=== PATIENT | female | born 1965 | race Caucasian/White ===

== ENCOUNTER → 2016-03-07 | Outpatient (CLI) | payer OTHER ==
[~2016-03-07] MED LIST: ASACOL HD800 M1 PO; BUSPAR 5MG TAB5 MG PO; DICLOFENAC SODI75 M2 PO; ENTOCORT EC3 M1 PO; GABAPENTIN100 MG PO; LIDOCAINE1 EACH TD; MEDROL 4MG. DOSE4 MG PO; METHOCARBAMOL750 M1 PO; MORPHINE SULFAT15 M3 PO; MUCINEX1200 MG PO; POTASSIUM CHLO20 ME2 PO; PROCTOCORT30 MG RC; PROMETHAZINE D118 ML PO; PROPYLTHIOURACI50 M1 PO; PROVENTIL0.09 MG/A1 IH; QUETIAPINE FUMA50 M1 PO; RESTORIL 15MG C15 MG PO; SUMATRIPTAN SUC50 M1 PO; TOPIRAMATE200 MG PO; ZITHROMAX Z PA250 MG PO
--- NOTE | 2016-03-07 20:04 | RADIOLOGY REPORT PS360 ---
CHEST(2 VIEWS-NOT PORTABLE) ORDERING PHYSICIAN : Vimal Ramirez MD PATIENT AGE: 50 years GENDER: Female INDICATION: chest pain CHEST PAIN PROCEDURE: CHEST(2 VIEWS-NOT PORTABLE) COMPARISON: None available FINDINGS: Lungs are hyperexpanded coarsening markings bilaterally. Emphysematous changes . Apical pleural scarring stable since prior studies 8mm Nodular density towards the right base may merely reflect nipple shadow at the fourth anterior interspace.- However this is not been seen on prior studies and does not have a rounded appearance more typical of nipple shadow... No matching density on the opposite side either.. I suspect this patient a smoker from appearance of chest in with this current questionable nodule, would suggest a CT of the chest chest to further evaluate this density as well as to provide a baseline CT on high-risk patient. I see no focal pneumonia. The heart lakisha and mediastinal structures appear stable. IMPRESSION 1. chronic changes. COPD. 2. No focal pneumonia 3.. There is 8 mm nodule seen towards right base. Conceivably could be asymmetric irregular nipple shadow. However with this finding would suggest a CT of the chest for this probable smoker.
== END ==
LOC: RAD 10:05
DX: R07.9 Chest pain, unspecified (principal)

== ENCOUNTER → 2016-03-09 | Outpatient (CLI) | payer OTHER ==
[2016-03-09 10:32] LABS: BUN 14 mg/dL (7-18)
[2016-03-09 10:33] LABS: GFR (ESTIMATED) 76 ML/MIN (59-)
--- NOTE | 2016-03-10 11:53 | RADIOLOGY REPORT PS360 ---
CTA-CHEST HISTORY: PLEURITIC CHEST PAIN ORDERING PHYSICIAN: Vimal Ramirez MD PATIENT AGE: 50 years TECHNIQUE: Helical acquisition obtained following the bolus administration of 70 mL of Isovue 370 followed by a saline bolus. Axial, sagittal, and coronal reformatted images are generated and reviewed. COMPARISON: None FINDINGS: PULMONARY ARTERIES:No pulmonary embolus evident. AORTA:No evidence of aortic aneurysm or dissection. There are mild atheromatous changes of the aorta with some calcific plaque. LUNGS:Biapical fibrotic changes with centrilobular emphysematous change 6 mm noncalcified right upper lobe nodule. Somewhat irregular 5 mm noncalcified nodular density right upper lobe posteriorly. There are fibrotic changes in the lung bases. There is a 13 x 9 mm irregular nodular opacity in the right lower lobe posteriorly with a linear extension to the pleura. This is noncalcified. 6 mm noncalcified nodule right middle lobe anteriorly. A small cavitary area is present in the lingula at approximately 14 mm. There are other scattered areas of fibrosis both parenchymal and pleural There are a few other 2 to 3 mm nodules present nonspecific and of questionable clinical significance PLEURAL SPACES:No significant effusion. No evidence of pneumothorax. HEART:Unremarkable. Normal heart size. No significant pericardial effusion. MEDIASTINAL AND HILAR STRUCTURES:No mediastinal or hilar mass evident. No dominant adenopathy. BONY STRUCTURES:No acute bony abnormalities apparent LYMPH NODES:No enlarged lymph nodes evident UPPER ABDOMEN:2 cm isodensity in the central aspect of the liver. 9 mm isodensity right hepatic lobe. These may be related to hepatic cysts IMPRESSION: 1. No evidence of aortic aneurysm or pulmonary embolus. 2. Centrilobular emphysematous changes with hyperinflation/obstructive chronic bronchitis. 3. Multiple pulmonary nodular opacities which are indeterminate. Neoplasm cannot be excluded. 13 x 9 mm irregular nodular opacity in the right lower lobe posteriorly along with a 6 mm noncalcified nodule in right upper lobe, 6 mm noncalcified nodule right middle lobe anteriorly and 5 mm noncalcified nodule right lower lobe posteriorly. These nodular indeterminate. The largest nodule somewhat suspicious for neoplasm. Postinflammatory fibrotic changes are also considered in the differential diagnosis. Consider PET/CT for further evaluation. If PET/CT is not performed then would at least recommend [address] follow-up 4. Probable hepatic cysts. Follow-up recommended
== END ==
LOC: RAD 10:09
PROVIDERS: Family Medicine
DX: R07.81 Pleurodynia (principal)
CPT/HCPCS: Q9967

== ENCOUNTER 2016-10-26 18:08 | Emergency (ER) | payer OTHER ==
[~2016-10-26] VITALS: Ht 170.2 cm; Wt 48.5 kg
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
[2016-10-26 18:24] VITALS: BP 135/76
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
== END 2016-10-26 18:37 | disposition short-term general hospital (02) ==
LOC: ER 18:08
DX: S72.001A Fracture of unspecified part of neck of right femur, initial encounter for closed fracture (principal); V29.60XA Unspecified motorcycle rider injured in collision with unspecified motor vehicles in traffic accident, initial encounter; Y92.410 Unspecified street and highway as the place of occurrence of the external cause; M54.5 Low back pain